=== PATIENT | male | born 1980 | race Caucasian/White ===

== ENCOUNTER 2022-03-22 10:14 | Day surgery (SDC) | payer OTHER ==
[2022-03-18 15:27] VITALS: BMI 30.6
[2022-03-22] MEDS ORDERED: PROPOFOL 80 ML ONE (12:07)
[2022-03-22 12:50] VITALS: TEMP 97.8
[2022-03-22 13:25] VITALS: BP 105/61; PULSE 69; RESP 18
== END 2022-03-22 13:45 | disposition home or self-care (01) ==
LOC: FASU-ENDO 10:14
PROVIDERS: ATTEND Internal Medicine Gastroenterology
PROC: 0DBL8ZX Excision of Transverse Colon, Via Natural or Artificial Opening Endoscopic, Diagnostic (ICD-10-PCS; 2022-03-22)
PROC: 0DBM8ZX Excision of Descending Colon, Via Natural or Artificial Opening Endoscopic, Diagnostic (ICD-10-PCS; 2022-03-22)
PROC: 0DBH8ZX Excision of Cecum, Via Natural or Artificial Opening Endoscopic, Diagnostic (ICD-10-PCS; 2022-03-22)
PROC: 0DBK8ZX Excision of Ascending Colon, Via Natural or Artificial Opening Endoscopic, Diagnostic (ICD-10-PCS; principal; 2022-03-22 12:19)
DX: K62.5 Hemorrhage of anus and rectum (principal); K64.1 Second degree hemorrhoids; R19.7 Diarrhea, unspecified
CPT/HCPCS: 88305-TC